=== PATIENT | male | born 1945 | race Two or more races ===

== ENCOUNTER 2018-08-01 04:16 | Inpatient (IN) | payer OTHER, MEDICARE | END 2018-08-01 09:55 | disposition left against medical advice (07) | LOC: ER 04:16 → TELE 06:33 | DX: R07.9 Chest pain, unspecified (principal); N18.3 Chronic kidney disease, stage 3 (moderate); E87.6 Hypokalemia; E66.9 Obesity, unspecified; Z95.5 Presence of coronary angioplasty implant and graft ==